=== PATIENT | female | born 1970 | race Caucasian/White ===

== ENCOUNTER 2017-09-27 08:04 | Emergency (ER) | payer MEDICAID, OTHER ==
--- NOTE | 2017-09-27 08:21 | Emergency Department Record ---
History of Present Illness - General Chief Complaint: Back Pain/Injury Stated Complaint: back pain/between shoulder blades Time Seen by Provider: 09/27/17 08:19 Source: Patient Mode of Arrival: Ambulatory Limitations: No limitations - History of Present Illness Initial Comments: The patient is here due to a one day hx of L upper back pain. The pain is sharp and stabbing and located over the L upper back below the neck. It did start yesterday and has slowly worsened. It is worse with any chest twisting, neck and head bending or rotation. The patient denies any CP, SOB, JED, or sweating but does state the back pain is worse with any deep breaths. She denies any hx of any CP with exertion or BONDS and her only cardiac risk factor is tobacco use. She did quit smoking 4 years ago. There is no hx of trauma, injury or lifting causing pain. The patient also denies any arm or leg numbness, tingling, or weakness. MD Complaint: Pain with inspiration Onset/Timin -: Days(s) Radiation: Back Severity: Severe Severity scale (1-10): 10 Quality: Sharp Consistency: Constant Improves With: Nothing Worsens With: Inspiration Associated Symptoms: Pain with inspiration Treatments Prior to Arrival: None - Related Data Home Oxygen Therapy: No Home Medications Medication Instructions Recorded Confirmed Last Taken Dextroamphetamine/Amphetamine 20 mg PO DAILY 09/27/17 09/27/17 09/27/17 [Adderall] Omeprazole [Prilosec] 40 mg PO DAILY 09/27/17 09/27/17 09/27/17 Previous Rx's Medication Instructions Recorded Cyclobenzaprine HCl [Flexeril] 10 mg PO TID PRN #20 tablet 09/27/17 Naproxen [Naprosyn] 250 mg PO BID #14 tablet 09/27/17 Allergies Allergy/AdvReac Type Severity Reaction Status Date / Time No Known Drug Allergies Allergy Verified 09/27/17 08:17 Travel Screening - Travel/Exposure Within Last 30 Days Have you traveled within the last 30 days?: No Review of Systems Constitutional: Denies: Chills, Fever Eyes: Denies: Eye discharge ENT: Denies: Congestion Respiratory: Denies: Cough, Dyspnea Cardiovascular: Denies: Chest pain Endocrine: Denies: Fatigue Gastrointestinal: Denies: Abdominal pain Genitourinary: Denies: Dysuria Musculoskeletal: Denies: Arthralgia Past Medical History - SOCIAL HISTORY Smoking Status: Former smoker - [employer] History LMP comments: Reports: none - RESPIRATORY Hx Respiratory Disorders: No - CARDIOVASCULAR Hx Cardio Disorders: No - NEURO Hx Neuro Disorders: No Family Medical History Any Significant Family History?: Yes Physical Exam - General General Appearance: Alert, Oriented x3, Cooperative, No acute distress - Head Head exam: Atraumatic, Normocephalic, Normal inspection - Eye Eye exam: Normal appearance, PERRL, EOMI - ENT Throat exam: Normal inspection. negative: Tonsillar erythema, Tonsillar exudate - Neck Neck exam: Normal inspection, Full ROM. negative: Tenderness - Respiratory Respiratory exam: Normal lung sounds bilaterally. negative: Accessory muscle use, Decreased breath sounds, Respiratory distress - Cardiovascular Cardiovascular Exam: Regular rate, Normal rhythm, Normal heart sounds. negative : Diastolic murmur, Systolic murmur - GI/Abdominal GI/Abdominal exam: Soft, Normal bowel sounds. negative: Tenderness - Extremities Extremities exam: Normal inspection, Full ROM, Normal capillary refill. negative: Tenderness - Back Back exam: Reports: Normal inspection, Paraspinal tenderness (The back pain is 100% reproducible with palpation of the L superior thoracic paraspinal area from T1-3. The pain is also reproduced with any head and neck bending or rotation.). Denies: Vertebral tenderness Image of Body Front/Back: 1 - Area of pain and reproducible tenderness. - Neurological Neurological exam: Alert, Normal gait, Oriented X3. negative: Abnormal gait, Altered, Motor sensory deficit - Skin Skin exam: negative: Rash Course Vital Signs 09/27/17 08:12 Temperature 98.1 F Pulse Rate 72 Respiratory 20 Rate Blood Pressure 113/78 Pulse Ox 97 - Reevaluation(s) Reevaluation #1: The patient is doing better but still having some pain. It is still 100% reproducible to palpation and with twisting. I did discuss the neg test results and the need for F/U with her PCP. 09/27/17 10:00 Medical Decision Making - Data Complexity MDM Data: Labs Ordered and/or Reviewed, X-Ray Ordered and/or Reviewed, EKG Ordered and/or Reviewed - Lab Data Result diagrams: 09/27/17 08:37 09/27/17 08:37 - EKG Data -: EKG Interpreted by Me EKG: No Acute Changes, Normal EKG (NSR at 60, RsR' pattern. Neg for ischemia.) - Radiology Data Radiology results: Report reviewed (CXR: Neg) Disposition Disposition: Discharge Clinical Impression: Muscle strain of left upper back Qualifiers: Encounter type: initial encounter Qualified Code(s): S29.012A - Strain of muscle and tendon of back wall of thorax, initial encounter Disposition: Home, Self-Care Condition: (2) Stable Instructions: Muscle Strain (ED) Additional Instructions: Please take the Naprosyn and Flexeril as directed. Please see your family doctor for recheck in 2-3 days if not better. Return to the ER for any worsening symptoms, pain, fever, or any trouble breathing. Prescriptions: Cyclobenzaprine HCl [Flexeril] 10 mg PO TID PRN #20 tablet PRN Reason: Pain Naproxen [Naprosyn] 250 mg PO BID #14 tablet Forms: Patient Portal Access Time of Disposition: 10:07 Quality - Quality Measures Quality Measures: N/A - Blood Pressure Screening View Details: Yes Does Patient Have Any of the Following: No Blood Pressure Classification: Normal BP Reading Systolic Measurement: 110 Diastolic Measurement: 76 Screening for High Blood Pressure: < Normal BP, F/U Not Required > [[id number]]
[2017-09-27] MEDS: KETOROLAC 30 MG/ML VIAL IVP ONE (08:39)
[2017-09-27 08:43] LABS: BASO % 0.5 % (0-6); EOS % 4.6 % (0-6); GRAN % 36.5 % (47-80); HEMATOCRIT 41.3 % (35.0-47.0); HEMOGLOBIN 13.3 gm/dl (11.6-16.0); LYMPH % 49.4 % (16-45); MEAN CORPUSCULAR HEMOGLOBIN 29.3 pg (27-33); MEAN CORPUSCULAR HGB CONC 32.2 g/dl (32-36); MEAN PLATELET VOLUME 8.5 fl (7.4-10.4); PLATELET COUNT 236 K/uL (130-400); RED BLOOD COUNT 4.54 M/uL (3.80-5.40); RED CELL DISTRIBUTION WIDTH 12.8 % (11.5-14.5); WHITE BLOOD COUNT W/O DIFF 3.9 K/uL (4.2-12.2)
[2017-09-27 08:55] LABS: BLOOD UREA NITROGEN 13 mg/dL (6-20); CREATININE 0.6 mg/dL (0.5-0.9); EST GLOMERULAR FILTRATION RATE > 60 mL/min
[2017-09-27 08:56] LABS: TOTAL PROTEIN 6.9 g/dL (6.6-8.7)
[2017-09-27 08:58] LABS: GLUCOSE,RANDOM 91 mg/dL (74-109)
[2017-09-27 09:00] LABS: ALB/GLOB RATIO 1.7 (1.1-1.8); ALBUMIN 4.3 g/dL (4.0-5.0); ALKALINE PHOSPHATASE 52 U/L (35-104); ALT/SGPT 12 U/L (<33); AST/SGOT 14 U/L (10.0-35.0)
[2017-09-27 09:01] LABS: CREATINE PHOSPHOKINASE 52 U/L (26-192)
[2017-09-27 09:02] LABS: CKMB 1.2 ng/mL (<3.77)
[2017-09-27] MEDS: ACETAMINOPHEN 1,000 MG/100 ML BTL IVPB ONE (09:05)
--- NOTE | 2017-09-29 09:12 | RADIOLOGY REPORT ---
EXAM: CHEST, TWO VIEWS HISTORY: LEFT UPPER BACK PAIN. NO KNOWN INJURY. TECHNIQUE: PA and lateral upright views of the chest were obtained. Comparison: 05/17/10. FINDINGS: The heart, mediastinum, and pulmonary vasculature are normal. The lungs appear hyperinflated. There is mild biapical pleural thickening. There are no acute infiltrates or effusions. There is no pneumothorax. Nipple shadows project over both hemithoraces. The bones appear intact. IMPRESSION: 1. NO ACUTE CHEST PATHOLOGY. 2. HYPERINFLATION. JOB NUMBER: [id number] [facility]
== END 2017-09-27 10:19 | disposition home or self-care (01) ==
LOC: ER 08:04
DX: M54.5 Low back pain (principal); S29.012A Strain of muscle and tendon of back wall of thorax, initial encounter
CPT/HCPCS: 71046; 80053; 82550; 82553; 84484; 85025; 85379; 93005; 93010; 96365; 96375; 99283; 99284; J1885